=== PATIENT | female | born 1985 | race Caucasian/White ===

== ENCOUNTER 2018-12-27 18:40 | Emergency (ER) | payer BC ==
[~2018-12-27] VITALS: Ht 154.9 cm; Wt 68.6 kg
[2018-12-27 18:50] VITALS: BP 139/82; TEMP 98.4
[2018-12-27] MEDS ORDERED: ZOFRAN 4MG T4 MG/TAB PO (19:48)
[2018-12-27] MEDS ORDERED: ULTRAM 50MG TAB50 MG PO (19:48)
[2018-12-27] MEDS ORDERED: DULCOLAX STOOL100 MG RC (19:49)
[2018-12-27 21:50] VITALS: PULSE 82
== END 2018-12-27 21:50 | disposition home or self-care (01) ==
LOC: COL.ER 18:40
DX: O26.891 Other specified pregnancy related conditions, first trimester (principal); K59.00 Constipation, unspecified; Z88.0 Allergy status to penicillin; Z88.1 Allergy status to other antibiotic agents; Z98.890 Other specified postprocedural states; Z3A.01 Less than 8 weeks gestation of pregnancy